=== PATIENT | male | born 1955 | race Two or more races ===

== ENCOUNTER 2016-09-06 14:17 | Outpatient (CLI) | payer BC ==
[~2016-09-06] VITALS: Ht 208.3 cm; Wt 85.7 kg
[2016-09-06 14:47] VITALS: BP 117/67
[2016-09-06] MEDS ORDERED: METOPROLOL SUCC50 MG ORAL (14:52)
[2016-09-06] MEDS ORDERED: SIMVASTATIN40 MG ORAL (14:52)
--- NOTE | 2016-09-06 15:05 | GI Initial Consult Note ---
History of Present Illness General Date patient seen: September 06, 2016 Time patient seen: 15:01 Referring physician: JIMMY Reason for Consultation: SCREENING COLON Present Illness HPI 61 year old male patient referred by Dr. Francois for routine screening colonoscopy. Pt presents today with no general GI symptoms. Home Meds Reported Medications Simvastatin (ZOCOR) 40 Mg Tablet, 40 MG ORAL BEDTIME, TAB 09/06/16 Metoprolol Succinate* (METOPROLOL SUCCINATE*) 50 Mg Tab.er.24h, 50 MG ORAL DAILY , TAB 09/06/16 Med list reviewed/reconciled: Yes Allergies: Coded Allergies: No Known Allergies (Unverified , 09/06/16) Patient History History Provided By: Patient PMH Narrative HTN CAD PSHx Open heart surgery - 2006 Family History Narrative Father, CAD Brother, CAD Mother, N/V Social History: Reports: alcohol use - 6xweekly, other - coffee 3x/week Review of Systems All Other Systems: negative except mentioned in HPI Physical Exam Vital Signs Date Time Temp Pulse Resp B/P Pulse Ox O2 Delivery O2 Flow Rate FiO2 09/06/16 14:47 98.0 74 16 117/67 Sp02 EP Interpretation: reviewed General Appearance: well appearing, no apparent distress, alert Head: normocephalic EENT: normal ENT inspection Neck: full range of motion Respiratory: normal inspection Cardiovascular: normal peripheral pulses, normal rate Gastrointestinal: normal inspection, non tender, soft Rectal: normal exam, normal rectal tone, heme negative stool Genitourinary: normal inspection, no CVA tenderness, no vertebral tenderness Musculoskeletal: normal inspection, back normal, digits/nails normal Neurologic: normal inspection, alert, oriented x3, responsive Psychiatric: normal inspection, judgement/insight normal, memory normal Skin: normal inspection, normal color, no rash, warm/dry Lymphatic: normal inspection, no adenopathy GI: Plan Problems: (1) HTN (hypertension) (2) CAD (coronary artery disease) (3) Colonoscopy planned Plan colonoscopy to be scheduled pending prior auth - [facility] & [employer] prep instructions given to patient. - will contact patient to schedule procedure date Seen with Dr. Thomas. Thank you for referring this patient, we will follow. Teresita Trinidad N.P. September 06, 2016 15:05
== END 2016-09-06 16:19 | disposition home or self-care (01) ==
LOC: PAN 14:17
DX: I10 Essential (primary) hypertension (principal); I25.10 Atherosclerotic heart disease of native coronary artery without angina pectoris; Z82.49 Family history of ischemic heart disease and other diseases of the circulatory system
CPT/HCPCS: 99201

== ENCOUNTER 2017-01-15 06:41 | Day surgery (SDC) | payer BC ==
[2017-01-15] VITALS (8 sets, daily range): BP systolic 106–136; BP diastolic 64–77
[~2017-01-15] VITALS: Ht 180.3 cm; Wt 86.2 kg
[~2017-01-15 06:41] MED LIST: METOPROLOL SUCC50 MG ORAL; SIMVASTATIN40 MG ORAL
[2017-01-15] MEDS ORDERED: ASPIR 8181 MG ORAL (07:55)
[2017-01-15] MEDS ORDERED: ZOCOR20 M1 ORAL (07:55)
[2017-01-15 08:21] LABS: BASOPHILS % (AUTO) 1.3 % (0.0-2.0); EOSINOPHILS % (AUTO) 5.2 % (0.0-3.0); LYMPHOCYTES % (AUTO) 33.2 % (20.0-45.0); MEAN CORPUSCULAR HEMOGLOBIN 31.7 PG (27.0-31.0); MEAN CORPUSCULAR HGB CONC 33.7 G/DL (32.0-36.0); MEAN CORPUSCULAR VOLUME 94 FL (80-99); MEAN PLATELET VOLUME 9.4 FL (6.5-10.1); MONOCYTES % (AUTO) 10.6 % (1.0-10.0); NEUTROPHILS % (AUTO) 49.7 % (45.0-75.0); PLATELET COUNT 207 K/UL (150-450); RED BLOOD COUNT 4.87 M/UL (4.70-6.10); RED CELL DISTRIBUTION WIDTH 11.8 % (11.6-14.8); WHITE BLOOD COUNT 5.2 K/UL (4.8-10.8)
[2017-01-15] MEDS ORDERED: LR 1000ml 1,000 ML IVLG SCH (08:29)
[2017-01-15] MEDS ORDERED: Norco 5mg/325mg tab ORAL PRN (08:30)
[2017-01-15] MEDS ORDERED: LORazepam Inj 2mg/ml 1ml IV PRN (08:30)
[2017-01-15] MEDS ORDERED: Atropine Inj 1mg/10ml Syr IV PRN (08:30)
[2017-01-15] MEDS ORDERED: oxyCODONE HCL/Acetaminophen 5/325mg ORAL PRN (08:30)
[2017-01-15] MEDS ORDERED: Hydromorphone 0.5mg/0.5ml inj IVP PRN (08:30)
[2017-01-15] MEDS ORDERED: Midazolam 2mg/2ml Inj IVP PRN (08:30)
[2017-01-15] MEDS ORDERED: Norco 7.5mg/325mg tab ORAL PRN (08:30)
[2017-01-15] MEDS ORDERED: Ketorolac 60mg Inj IV PRN (08:30)
[2017-01-15] MEDS ORDERED: Metoclopramide 10mg/2ml Inj IVP PRN (08:30)
[2017-01-15] MEDS ORDERED: Meperidine 25mg/0.5ml Inj (FOR RIGORS ONLY) IV PRN (08:30)
[2017-01-15] MEDS ORDERED: Ketorolac 30mg Inj IV PRN (08:30)
[2017-01-15] MEDS ORDERED: DiphenhydrAMINE 50mg/ml Inj IVP PRN (08:30)
[2017-01-15] MEDS ORDERED: fentaNYL 100 mcg/2 mL IV PRN (08:30)
--- NOTE | 2017-01-15 08:32 | Anethesia Preoperative Eval ---
Anesthesia Pre-op PMH/ROS General Date of Evaluation: Jan 15, 2017 Anesthesiologist: Kolby ASA Score: ASA 3 Mallampati Score Class I : Soft palate, uvula, fauces, pillars visible Class II: Soft palate, uvula, fauces visible Class III: Soft palate, base of uvula visible Class IV: Only hard plate visible Mallampati Classification: Class III Surgeon: Martha Diagnosis: Abd Pain Surgical Procedure: Colonoscopy Anesthesia History: none Family History: no anesthesia problems Allergies: Coded Allergies: No Known Allergies (Unverified , 09/06/16) Medications: see eMAR Past Medical History Cardiovascular: Reports: HTN, CAD - CABG, other - HL PSxH Narrative: CABG Anesthesia Pre-op Phys. Exam Physician Exam Last Vital Signs Date Time Temp Pulse Resp B/P (MAP) Pulse Ox O2 Delivery O2 Flow Rate FiO2 01/15/17 07:34 97.8 59 17 136/77 98 Room Air Constitutional: NAD Neurologic: CN 2-12 intact Cardiovascular: RRR Respiratory: CTA Gastrointestinal: S/NT/ND Airway Exam Mallampati Score: Class III MO: limited ROM: limited Teeth: missing, intact Anesthesia Pre-op A/P Labs Hematology Test 01/15/17 07:50 White Blood Count 5.2 K/UL (4.8-10.8) Red Blood Count 4.87 M/UL (4.70-6.10) Hemoglobin 15.4 G/DL (14.2-18.0) Hematocrit 45.9 % (42.0-52.0) Mean Corpuscular Volume 94 FL (80-99) Mean Corpuscular Hemoglobin 31.7 PG (27.0-31.0) H Mean Corpuscular Hemoglobin Concent 33.7 G/DL (32.0-36.0) Red Cell Distribution Width 11.8 % (11.6-14.8) Platelet Count 207 K/UL (150-450) Mean Platelet Volume 9.4 FL (6.5-10.1) Neutrophils (%) (Auto) 49.7 % (45.0-75.0) Lymphocytes (%) (Auto) 33.2 % (20.0-45.0) Monocytes (%) (Auto) 10.6 % (1.0-10.0) H Eosinophils (%) (Auto) 5.2 % (0.0-3.0) H Basophils (%) (Auto) 1.3 % (0.0-2.0) Chemistry Test 01/15/17 07:50 Sodium Level Pending Potassium Level Pending Chloride Level Pending Carbon Dioxide Level Pending Blood Urea Nitrogen Pending Creatinine Pending Estimat Glomerular Filtration Rate Pending Glucose Level Pending Calcium Level Pending Risk Assessment & Plan Assessment: ASA 3 Plan: GA Status Change Before Surgery: No Ashwin Jarrett MD Jan 15, 2017 08:32
--- NOTE | 2017-01-15 08:36 | Immediate Post-Op Evaluation ---
Immediate Post-Op Evalulation Immediate Post-Op Evalulation Procedure: Colonoscopy Date of Evaluation: Jan 15, 2017 Time of Evaluation: 09:39 IV Fluids: 400 LR Blood Products: 0 Estimated Blood Loss: 1 Urinary Output: 0 Blood Pressure Systolic: 121 Blood Pressure Diastolic: 67 Pulse Rate: 58 Respiratory Rate: 16 O2 Sat by Pulse Oximetry: 100 Temperature (Fahrenheit): 98.1 Pain Score (1-10): 1 Nausea: No Vomiting: No Complications 0 Patient Status: awake, reacts, patent, none Hydration Status: adequate Ashwin Jarrett MD Jan 15, 2017 08:36
--- NOTE | 2017-01-15 08:37 | 48 Hour Post Anesthesia Eval ---
Post Anesthesia Evaluation Procedure: Colonoscopy Date of Evaluation: Jan 15, 2017 Time of Evaluation: 09:39 Blood Pressure Systolic: 133 0: 78 Pulse Rate: 62 Respiratory Rate: 18 Temperature (Fahrenheit): 98.4 O2 Sat by Pulse Oximetry: 100 Airway: patent Nausea: No Vomiting: No Pain Intensity: 1 Hydration Status: adequate Cardiopulmonary Status: stable Mental Status/LOC: patient returned to baseline Follow-up Care/Observations: 0 Post-Anesthesia Complications: 0 Follow-up care needed: ready to discharge Ashwin Jarrett MD Jan 15, 2017 08:37
[2017-01-15 08:43] LABS: ANION GAP 11 (5-15); CALCIUM 9.5 mg/dL (8.6-10.2); CARBON DIOXIDE 27 mEQ/L (20-30); CHLORIDE 99 mEQ/L (98-107); CREATININE 1.1 mg/dL (0.7-1.2); GLOMERULAR FILTRATION RATE > 60 mL/min (>60); HEMOLYSIS 4; POTASSIUM 4.6 mEQ/L (3.4-4.9); SODIUM 137 mEQ/L (135-145)
--- NOTE | 2017-01-15 08:49 | Pre-Procedure Note/Attestation ---
Pre-Procedure Note/Attestation Complete Prior to Procedure Planned Procedure: not applicable Procedure Narrative: colonoscopy Indications for Procedure Pre-Operative Diagnosis: screening Attestation I attest that I discussed the nature of the procedure; its benefits; risks and complications; and alternatives (and the risks and benefits of such alternatives ), prior to the procedure, with the patient (or the patient's legal medical sales representative). I attest that, if there was a reasonable possibility of needing a blood transfusion, the patient (or the patient's legal medical sales representative) was given the [facility] standardized written summary, pursuant to the [place] Blood Safety Act ([place] Health and Safety Code # 1645, as amended). I attest that I re-evaluated the patient just prior to the surgery and that there has been no change in the patient's H&P, except as documented below: KERRI GUTIERREZ Jan 15, 2017 08:49
--- NOTE | 2017-01-15 08:49 | Short Stay Surgery H&P ---
History of Present Illness History of Present Illness Chief Complaint see recent consult note HPI Jesus James is a 61 year old male who was admitted on for Colon Screening Patient History Allergies: Coded Allergies: No Known Allergies (Unverified , 09/06/16) PAST MEDICAL HISTORY: Past Surgeries: Social History: Medication History Scheduled Aspirin* (Aspir 81*), 81 MG ORAL DAILY, (Reported) Metoprolol Succinate* (Metoprolol Succinate*), 50 MG ORAL DAILY, (Reported) Simvastatin (Zocor), 20 MG ORAL BEDTIME, (Reported) Physical Exam Vital Signs Last Vital Signs Date Time Temp Pulse Resp B/P (MAP) Pulse Ox O2 Delivery O2 Flow Rate FiO2 01/15/17 07:34 97.8 59 17 136/77 98 Room Air Labs Laboratory Tests Test 01/15/17 07:50 White Blood Count 5.2 K/UL (4.8-10.8) Red Blood Count 4.87 M/UL (4.70-6.10) Hemoglobin 15.4 G/DL (14.2-18.0) Hematocrit 45.9 % (42.0-52.0) Mean Corpuscular Volume 94 FL (80-99) Mean Corpuscular Hemoglobin 31.7 PG (27.0-31.0) H Mean Corpuscular Hemoglobin Concent 33.7 G/DL (32.0-36.0) Red Cell Distribution Width 11.8 % (11.6-14.8) Platelet Count 207 K/UL (150-450) Mean Platelet Volume 9.4 FL (6.5-10.1) Neutrophils (%) (Auto) 49.7 % (45.0-75.0) Lymphocytes (%) (Auto) 33.2 % (20.0-45.0) Monocytes (%) (Auto) 10.6 % (1.0-10.0) H Eosinophils (%) (Auto) 5.2 % (0.0-3.0) H Basophils (%) (Auto) 1.3 % (0.0-2.0) Sodium Level Pending Potassium Level Pending Chloride Level Pending Carbon Dioxide Level Pending Blood Urea Nitrogen Pending Creatinine Pending Estimat Glomerular Filtration Rate Pending Glucose Level Pending Calcium Level Pending Plan Attestation Are the patient's medical conditions optimized for surgery? KERRI GUTIERREZ Jan 15, 2017 08:49
[2017-01-15] MEDS ORDERED: Alfentanil 2ml Inj ONE (09:00)
[2017-01-15] MEDS ORDERED: Lidocaine 1% MPF 10mg/ml 5ml ONE (09:00)
[2017-01-15] MEDS ORDERED: Propofol 200mg/20ml IV ONE (09:00)
[2017-01-15] MEDS ORDERED: LR 1000ml ONE (09:00)
[2017-01-15] MEDS ORDERED: Midazolam 2mg/2ml Inj ONE (09:00)
--- NOTE | 2017-01-15 14:21 | Endoscopy Procedure Note ---
Endoscopy Procedure Note Indication for Procedure: screening Procedures Performed: colonoscopy Operative Findings/Diagnosis: one polyp Specimen: yes Pt Tolerated Procedure Well: Yes Estimated Blood Loss: none Anesthesiologist: yuliana Anesthesia: MAC Implant(s) used?: No 50 yrs or older w/o bx or poly: Not Applicable 10yrs. F/U not recommended: Not Applicable KERRI GUTIERREZ Jan 15, 2017 14:21
--- NOTE | 2017-01-15 20:45 | Procedure Note ---
DATE OF PROCEDURE: 01/15/2017 SURGEON: Issa Thomas M.D. PROCEDURE: Colonoscopy with biopsy. ANESTHESIOLOGIST: Ashwin Jarrett M.D. INSTRUMENT: Olympus adult flexible colonoscope. INDICATION: Screening colonoscopy. REASON FOR PROCEDURE: The procedure, risks, benefits, and possible consequences, including hemorrhage, aspiration, perforation and infection, and alternative treatments, were explained to the patient/legal guardian by Dr. Issa Thomas and the patient/legal guardian understood and accepted these risks. DESCRIPTION OF PROCEDURE: After informed consent was obtained and the patient was adequately sedated, first rectal exam was performed, which was positive for internal hemorrhoids. Then, the scope was advanced from the rectum into the cecum, the appendiceal orifice, ileocecal valve, and right upper quadrant palpation. Quality of prep was very good. The patient had one diminutive polyp in the rectum which was removed with the cold biopsy forceps technique. Retroflexion of rectum showed evidence of medium-sized internal hemorrhoid. The rest of the examination grossly looked within normal limits. The patient tolerated the procedure well without any complication. SUMMARY OF FINDINGS: 1. Diminutive rectal polyp, which was removed with cold biopsy forceps technique. 2. Internal hemorrhoids. RECOMMENDATIONS: 1. Followup biopsy results. 2. Recommend repeat colonoscopy in five years. I want to thank, Dr. Francois, for this kind referral. Issa Thomas M.D. DR: EVAN JOB#: [id number] CC: Irina Francois M.D.; Fax#: [phone]
--- NOTE | 2017-01-16 17:59 | Cardiology Report ---
APPROVED REPORT EKG Measurement Heart [id number] Normal sinus rhythm Right bundle branch block Abnormal ECG
== END 2017-01-15 10:35 | disposition home or self-care (01) ==
LOC: GAS 06:41
DX: Z12.11 Encounter for screening for malignant neoplasm of colon (principal); K62.1 Rectal polyp; K64.8 Other hemorrhoids; I10 Essential (primary) hypertension; I25.10 Atherosclerotic heart disease of native coronary artery without angina pectoris; Z95.1 Presence of aortocoronary bypass graft; Z79.82 Long term (current) use of aspirin
CPT/HCPCS: 36415; 45380; 80048; 85025; 93005; J2250; J2704; J3490; J7120; 94003; 94150